=== PATIENT | female | born 1970 | race Two or more races ===

== ENCOUNTER 2017-07-14 16:37 | Inpatient (IN) | payer BC ==
[~2017-07-14] VITALS: Ht 160 cm; Wt 67.6 kg
[2017-07-14] VITALS (25 sets, daily range): BP systolic 105–199; BP diastolic 57–100
--- NOTE | 2017-07-14 16:40 | NUR ---
[id number], [id number] FROM [facility] FOR S/P SEIZURE WHILE IN [facility], BS-177, PT IS UNRESPONSIVE. RR IS EVEN AND UNLABORED WITH NAD NOTED. SKIN IS WARM AND NON DIAPHORETIC. NASAL TRUMPET NOTED HR ADMINISTRATIVE ASSISTANT. DR CASTILLO AT BS FOR EVAL. PATIENT PLACED ON THE MONITOR.
[2017-07-14] MEDS ORDERED: IOHEXOL-350 100 ML VIAL IV ONE (16:46)
[2017-07-14] MEDS ORDERED: IV NS 0.9% 250 ML IV ONE (16:46)
--- NOTE | 2017-07-14 16:53 | NUR ---
DR MORRISON FROM TELESTROKE CALLED ,ON THE PHONE WITH DR CASTILLO.
[2017-07-14] MEDS ORDERED: LEVETIRACETAM (500MG) 500 MG in IV NS 0.9% 100 ML IV SCH (17:00)
[2017-07-14] MEDS ORDERED: IV NS 0.9% 1,000 ML BAG IV ONE (17:00)
[2017-07-14 17:13] LABS: CALCIUM, SERUM 8.1 mg/dL (8.5-10.1); CARBON DIOXIDE 25 mmol/L (21-32); CHLORIDE 100 mmol/L (98-107); CREATININE 0.8 mg/dL (0.6-1.3); GLUCOSE 122 mg/dL (74-106); POTASSIUM 3.7 mmol/L (3.5-5.1); SODIUM SERUM 134 mmol/L (136-145); UREA NITROGEN, BLOOD 15 mg/dL (7-18)
[2017-07-14 17:17] LABS: INR 1.02 (0.87-1.13); PROTHROMBIN TIME 10.6 SECS (9.5-12.7)
[2017-07-14 17:18] LABS: ALANINE AMINOTRANSFERASE 15 U/L (12-78); ALBUMIN 3.3 g/dL (3.4-5.0); ALKALINE PHOSPHATASE 59 U/L (46-116); ASPARTATE AMINOTRANSFERASE 16 U/L (15-37); BILIRUBIN,TOTAL 0.1 mg/dL (0.2-1.0); TOTAL PROTEIN, SERUM 6.4 g/dL (6.4-8.2)
[2017-07-14 17:21] LABS: TROPONIN I < 0.017 ng/mL (0.00-0.056)
[2017-07-14 17:30] LABS: BASOPHILS # (AUTO) 0.1 /CMM (0.0-0.2); BASOPHILS % (AUTO) 0.5 % (0.0-2.0); EOSINOPHILS # (AUTO) 0.2 /CMM (0.0-0.7); EOSINOPHILS % (AUTO) 2.6 % (0.0-6.0); HEMATOCRIT 32 % (33-45); LYMPHOCYTES # (AUTO) 2.3 /CMM (0.8-4.8); LYMPHOCYTES % (AUTO) 24.3 % (20.0-44.0); MEAN CORPUSCULAR HEMOGLOBIN 26 PG (26.0-33.0); MEAN CORPUSCULAR HGB CONC 31 g/dl (31.0-36.0); MEAN CORPUSCULAR VOLUME 84 fL (82-100); MONOCYTES # (AUTO) 0.6 /CMM (0.1-1.30); MONOCYTES % (AUTO) 6.8 % (2.0-12.0); NEUTROPHILS # (AUTO) 6.2 /CMM (1.8-8.9); NEUTROPHILS % (AUTO) 65.8 % (43.0-81.0); PLATELET COUNT (AUTO) 349 /CMM (150-450); RDW COEFFICIENT OF VARIATION 14.4 (11.5-15.0); RED BLOOD CELL COUNT(AUTO) 3.78 MIL/uL (4.0-5.2); WHITE BLOOD COUNT (AUTO) 9.4 K/uL (4.3-11.0)
--- NOTE | 2017-07-14 18:13 | NUR ---
REPORT GIVEN TO MISAEL WORKMAN FOR [facility] ICU 254
[2017-07-14] MEDS ORDERED: ACETAMINOPHEN 650 MG/SUPP.RECT RC PRN (18:30)
[2017-07-14] MEDS ORDERED: LORAZEPAM INJ 2 MG/ML VIAL IV PRN (18:30)
[2017-07-14] MEDS ORDERED: ONDANSETRON HCL/PF 4 MG/2 ML VIAL IVP PRN (18:30)
--- NOTE | 2017-07-14 18:35 | NUR ---
ICU/RN PT ADMITTED FROM ER .UNRESPONSIVE .ON 6L SIMPLE MASK ,SAT O2-99%.PT HAS A LOT OF ORAL SECRETION. SUCTION PROVIDED.IV -HL.UNABLE PROVIDE ANY HISTORY.SKIN INTACT.
--- NOTE | 2017-07-14 18:50 | NUR ---
ICU/RUGBY LEAGUE FOOTBALLER AT BEDSIDE.PT HAS NO HX OF ANY DISEASE.HEALTHY ,GOING TO THE GYM DAILY.SHE WAS FOUND IN THE [place] IN THE GYM HAD SEIZURES. CT OF THE HEAD NEGATIVE.PT IS FULL CODE.PT NEED TO BE INTUBATED.ER DOCTOR NOTIFIED.ABG ORDERED.CONTINUE MONITORING.
--- NOTE | 2017-07-14 19:15 | NUR ---
RN:ICU: PT RECEIVED IN BED, RECENTLY ADMITTED FROM ER FOR ACUTE ENCEPHALOPATHY SECONDARY TO NEW ONSET SZ. PT BARELY RESPONSIVE TO DEEP PAINFUL STIMULI. PT NOTED WITH SHALLOW BREATHING, GURGLING AND WITH HER TONGUE PARTIALLY OCCLUDING HER AIRWAY. SPOKE WITH BRONWYN ASSESSMENT COORDINATOR REGARDING PT CONDITION AND CONCERNS WITH PATIENT BEING ABLE TO PROTECT AIRWAY. ASSESSMENT COORDINATOR ORDERED TO HAVE ER MD TO INTUBATE PT AND PRESCRIBED PRN HYDRALAZINE FOR ELEVATED SBP. ER MD CALLED TO THE BEDSIDE TO ASSESS PT AND INTUBATE. BASED OF THE ER MD'S ASSESSMENT SHE FELT LIKE THE PATIENT WAS WAKING UP AND DID NOT NEED TO BE INTUBATED. STAT ABG ORDERED TO DETERMINE IF THE PATIENT WAS VENTILATING ADEQUATELY. PER ER MD PERFORM ABG AND CALL HER WITH THE RESULTS IF THERE WERE ANY ABNORMALITIES. RT AT BEDSIDE PERFORMING ABG. WILL CONTINUE TO MONITOR CLOSELY. PT FAMILY UPDATED REGARDING POC.
[2017-07-14 19:26] LABS: ABG BASE EXCESS -6.8 mmol/L; ABG OXYGEN SATURATION 98.7 % (92.0-98.5); ABG PCO2 106.3 mmHg (35.0-45.0); ABG PH 7.014 (7.350-7.450); ABG PO2 246.8 mmHg (75.0-100.0); COHb 0.3 % (0.5-1.5); MetHb 0.9 % (0.0-1.5); O2Hb 97.5 % (94.0-97.0); SITE, ABG Right Radial
[2017-07-14] MEDS ORDERED: hydrALAZINE HCL IV 20 MG VIAL IV PRN (19:30)
--- NOTE | 2017-07-14 19:45 | NUR ---
RN:ICU: ABG RESULTS CALLED TO ER MD PCO2 WAS >100. MD WILL INTUBATE PT.
[2017-07-14] MEDS: IV NS 0.9% 1,000 ML IV PRN (19:53)
[2017-07-14] MEDS: PROPOFOL 100 ML IV PRN ×2 (20:36→22:12)
--- NOTE | 2017-07-14 20:51 | NUR ---
@[address] PT ORALLY INTUBATED BY DR. SILVER. 7.5 ETT SECURED AT 22CM AT THE LIP. GOOD COLOR CHANGE ON CO2 DETECTOR. BREATH SOUND GOOD, EQUAL CHEST RISE. PT PLACED ON 840 VENT. PLACED ANCHOR FAST. ETT TUBE IS ON RIGHT SIDE OF THE LIP. SX'D FOR WHITE SECRETIONS. VENT ALARMS SET AND AUDIBLE. AMBU BAG AT BEDSIDE. VENT PLUGGED INTO RED OUTLET. WILL CONTINUE TO MONITOR.
[2017-07-14] MEDS ORDERED: ENOXAPARIN SODIUM 40 MG/0.4 ML DISP.SYRIN SQ SCH (21:00)
[2017-07-14] MEDS: FAMOTIDINE/PF INJ 20 MG/2 ML VIAL IV SCH (21:22)
[2017-07-14 21:23] LABS: ABG BASE EXCESS -3.1 mmol/L; ABG OXYGEN SATURATION 99.1 % (92.0-98.5); ABG PCO2 31.7 mmHg (35.0-45.0); ABG PH 7.428 (7.350-7.450); ABG PO2 251.5 mmHg (75.0-100.0); AaDO2 69.3 mmHg; COHb 0.5 % (0.5-1.5); MetHb 0.3 % (0.0-1.5); O2Hb 98.3 % (94.0-97.0); SITE, ABG Right Radial
--- NOTE | 2017-07-14 21:28 | NUR ---
ABG DONE. RN NOTIFIED WITH RESULT.
--- NOTE | 2017-07-14 21:44 | NUR ---
RATE CHANGED TO 16, TIDAL VOLUME TO 450, FIO2 40% PER DR. PERRY.
--- NOTE | 2017-07-14 21:53 | NUR ---
RN:ICU: ABG 1 HOUR POST INTUBATED REPORTED TO MD SHOVEL OPERATOR. NEW ORDERS TO MAKE VENT CHANGES. ORDERS RECEIVED TO INCREASE DIPRIVAN TO GREATER THAN 50MCG/KG/MIN PT CONTINUES CONTINUES TO COUGH AND IS AT HIGH RISK FOR SELF EXTUBATION SHE COUGHS VIOLENTLY AND IS BITING TUBE. ALSO BSWR ORDERED FOR PT SAFETY SHE MAY SELF EXTUBATE, DESPITE REORIENTATION. FAMILY AT THE BEDSIDE AND AWARE OF POC. WILL CONTINUE TO MONITOR CLOSELY.
[2017-07-15] VITALS (46 sets, daily range): BP systolic 94–172; BP diastolic 45–95
[2017-07-15 00:32] LABS: APPEARANCE,URINE CLEAR (CLEAR); BILIRUBIN,URINE NEGATIVE (NEGATIVE); BLOOD, URINE TRACE Ery/uL (NEGATIVE); COLOR,URINE YELLOW (YELLOW); KETONES,URINE TRACE (NEGATIVE); LEUKOCYTE ESTERASE ,URINE NEGATIVE (NEGATIVE); NITRITE, URINE NEGATIVE (NEGATIVE); PH,URINE 6.5 (5.0-8.0); PROTEIN,URINE TRACE mg/dl (NEGATIVE); UGLUCOSE NEGATIVE (NEGATIVE); UROBILINOGEN,URINE 0.2 EU/dL (0.2)
[2017-07-15 00:37] LABS: BACTERIA,URINE None seen /HPF (None Seen); RBC,URINE 0-2 /HPF (0-2); SQUAMOUS EPITHELIAL CELL,UR Few /HPF (None Seen); WBC,URINE 0-2 /HPF (0-3)
[2017-07-15] MEDS: PROPOFOL 100 ML IV PRN ×4 (00:55→08:23)
--- NOTE | 2017-07-15 03:25 | NUR ---
RN:ICU: PT CONTINUES TO BECOME EASILY AGITATED, COUGHING VIOLENTLY AND IS AT RISK FOR SELF EXTUBATION, DESPITE BEING ON 90MCG/KG/MIN. SEDATION INCREASED FOR PT COMFORT AND SAFETY, WITH BSWR IN PLACE. PT HAS HIGH TOLERANCE TO SEDATION MEDICATION. IV SITE WHERE DIPRIVAN IS INFUSING REMAINS PATENT. PT URINE TOXICOLOGY SCREEN POSITIVE FOR AMPHETAMINES, WILL ENDORSE TO ONCOMING SHIFT.
[2017-07-15] MEDS: IV NS 0.9% 1,000 ML IV PRN ×2 (03:57→17:17)
[2017-07-15 04:37] LABS: BASOPHILS % (AUTO) 0.2 % (0.0-2.0); EOSINOPHILS % (AUTO) 0.3 % (0.0-6.0); HEMATOCRIT 31 % (33-45); LYMPHOCYTES # (AUTO) 1.3 /CMM (0.8-4.8); LYMPHOCYTES % (AUTO) 13.2 % (20.0-44.0); MEAN CORPUSCULAR HEMOGLOBIN 27 PG (26.0-33.0); MEAN CORPUSCULAR HGB CONC 32 g/dl (31.0-36.0); MEAN CORPUSCULAR VOLUME 83 fL (82-100); MONOCYTES # (AUTO) 0.9 /CMM (0.1-1.30); MONOCYTES % (AUTO) 8.7 % (2.0-12.0); NEUTROPHILS # (AUTO) 7.8 /CMM (1.8-8.9); NEUTROPHILS % (AUTO) 77.6 % (43.0-81.0); PLATELET COUNT (AUTO) 305 /CMM (150-450); RDW COEFFICIENT OF VARIATION 14.4 (11.5-15.0); RED BLOOD CELL COUNT(AUTO) 3.77 MIL/uL (4.0-5.2); WHITE BLOOD COUNT (AUTO) 10.1 K/uL (4.3-11.0)
[2017-07-15 04:56] LABS: CREATININE 0.5 mg/dL (0.6-1.3); MAGNESIUM 1.9 mg/dL (1.8-2.4); PHOSPHORUS 3.6 mg/dL (2.5-4.9); POTASSIUM 3.3 mmol/L (3.5-5.1)
[2017-07-15 05:05] LABS: THYROID STIMULATING HORMONE 0.536 uIU/mL (0.358-3.74)
[2017-07-15] MEDS: FAMOTIDINE/PF INJ 20 MG/2 ML VIAL IV SCH ×2 (08:41→20:27)
[2017-07-15] MEDS ORDERED: ETOMIDATE 2 MG/ML VIAL ONE (08:41)
[2017-07-15] MEDS ORDERED: SUCCINYLCHOLINE CHLORIDE 20 MG/ML VIAL ONE (08:41)
[2017-07-15] MEDS: ENOXAPARIN SODIUM 40 MG/0.4 ML DISP.SYRIN SQ SCH (08:42)
[2017-07-15] MEDS: LEVETIRACETAM (500MG) 500 MG in IV NS 0.9% 100 ML IV SCH ×2 (08:45→20:27)
[2017-07-15] MEDS ORDERED: FAMOTIDINE/PF INJ 20 MG/2 ML VIAL IV SCH (09:00)
--- NOTE | 2017-07-15 09:57 | NUR ---
TITRATING DOWN DIPRIVAN (FROM 100MCG) FOR SEDATION VACATION. PT IS ALREADY RESTLESS MOVING ARM AND LEGS, BUT DOESN'T FOLLOW SIMPLE COMMANDS YET TO OPEN EYES OR SQUEEZE HANDS. WILL CONTINUE TO TITRATE DOWN AND ASSESS. RESTRAINTS IN PLACE. PT'S BROTHER IS AT BEDSIDE, I ORIENTED HIM TO THE PLAN OF CARE AND TO REMAIN CALM AND TO ORIENT HER ABOUT THE SITUATION SHE CONTINUES TO WAKE UP.
[2017-07-15] MEDS: POTASSIUM CL. PREMIX PERIPHER. 50 ML IV SCH ×2 (10:31→11:31)
--- NOTE | 2017-07-15 10:55 | NUR ---
DR. POLO NOTIFIED ABOUT POTASSIUM REPLACEMENT HE SAYS ITS OKAY TO REPLACE THROUGH NGTUBE INSTEAD OF IV BECAUSE WE ONLY HAVE PERIPH IV'S.
--- NOTE | 2017-07-15 11:05 | NUR ---
DR. POLK SHOWN THE NEWEST ABG OFF OF SEDATION, GIVES ORDERS TO EXTUBATE.
[2017-07-15 11:08] LABS: ABG OXYGEN SATURATION 98.4 % (92.0-98.5); ABG PCO2 40.9 mmHg (35.0-45.0); ABG PH 7.354 (7.350-7.450); ABG PO2 173.3 mmHg (75.0-100.0); AaDO2 64.9 mmHg; COHb 0.3 % (0.5-1.5); MetHb 0.9 % (0.0-1.5); O2Hb 97.2 % (94.0-97.0); PEEP,BG 5 cm H2O; SITE, ABG Right Radial; VENT MODE, BG SIMV 4 PS 12 +5
[2017-07-15] MEDS ORDERED: DC PROPOFOL WHEN EXTUBATED XX PRN (11:20)
[2017-07-15] MEDS ORDERED: POTASSIUM CHLORIDE 20 MEQ POWDER PACKET GT ONE (11:30)
[2017-07-15] MEDS: ACETAMINOPHEN 325 MG TABLET PO PRN ×2 (12:40→20:27)
[2017-07-15 13:23] LABS: ABG BASE EXCESS -2.7 mmol/L; ABG OXYGEN SATURATION 98.6 % (92.0-98.5); ABG PCO2 43.6 mmHg (35.0-45.0); AaDO2 29.1 mmHg; COHb 0.1 % (0.5-1.5); MetHb 0.7 % (0.0-1.5); O2Hb 97.8 % (94.0-97.0); SITE, ABG Left Radial; VENT MODE, BG N/C
--- NOTE | 2017-07-15 16:29 | NUR ---
Patient lives at home with family. Prior to admission, she was physically active, works at [employer]. Patient was extubated, tolerating O2 nasal . Plan to dc back home, has good family support. Addendum: 07/15/17 at 1629 by ERI PORTILLO RN Amended: Links added.
--- NOTE | 2017-07-15 16:44 | NUR ---
PT C/O OF MIGRAINE HEADACHE, GAVE TYLENOL EARLIER WITH NO RELIEF. NOTIFIED DR. POLO WHO OKAYS TO ORDER EXCEDRIN 1 TAB Q6HR PRN MIGRAINE.
[2017-07-15] MEDS: ASPIRIN/ACETAMINOPHEN/CAFFEINE 1 EACH TABLET PO PRN (17:26)
--- NOTE | 2017-07-15 19:53 | NUR ---
RN:ICU: PT RECEIVED IN BED CONFUSED BUT ABLE TO FOLLOW COMMANDS. PT CONTINUES TO ASK HOW SHE GOT TO THE HOSPITAL. PT REORIENTED SEVERAL TIMES BUT PT REMAINS CONFUSED. PT DENIES PAIN OR RESPIRATORY DISTRESS. ASPIRATION AND FALL PRECAUTIONS IN PLACE. WILL CONTINUE TO MONITOR CLOSELY.
[2017-07-16] VITALS (23 sets, daily range): BP systolic 116–159; BP diastolic 63–94
[2017-07-16] MEDS: IV NS 0.9% 1,000 ML IV PRN ×3 (01:06→19:56)
[2017-07-16 04:41] LABS: BASOPHILS % (AUTO) 0.4 % (0.0-2.0); EOSINOPHILS % (AUTO) 0.5 % (0.0-6.0); HEMATOCRIT 30 % (33-45); HEMOGLOBIN 9.8 g/dL (11.5-14.8); LYMPHOCYTES # (AUTO) 1.2 /CMM (0.8-4.8); MEAN CORPUSCULAR HEMOGLOBIN 27 PG (26.0-33.0); MEAN CORPUSCULAR HGB CONC 33 g/dl (31.0-36.0); MEAN CORPUSCULAR VOLUME 83 fL (82-100); MONOCYTES # (AUTO) 0.7 /CMM (0.1-1.30); MONOCYTES % (AUTO) 7.6 % (2.0-12.0); NEUTROPHILS # (AUTO) 6.8 /CMM (1.8-8.9); NEUTROPHILS % (AUTO) 77.5 % (43.0-81.0); PLATELET COUNT (AUTO) 289 /CMM (150-450); RDW COEFFICIENT OF VARIATION 14.6 (11.5-15.0); RED BLOOD CELL COUNT(AUTO) 3.61 MIL/uL (4.0-5.2); WHITE BLOOD COUNT (AUTO) 8.8 K/uL (4.3-11.0)
[2017-07-16 04:55] LABS: CALCIUM, SERUM 8.4 mg/dL (8.5-10.1); CREATININE 0.5 mg/dL (0.6-1.3); POTASSIUM 3.1 mmol/L (3.5-5.1)
--- NOTE | 2017-07-16 07:36 | NUR ---
ICU NOTE PT MORE ALERT TODAY. INTERMEDIATE MEMORY INTACT, BUT SHE DOESN'T RECALL THE EVENTS THAT BROUGHT HER TO THE HOSPITAL. SHE REMEMBERS BITS AND PARTS FROM YESTERDAY AFTER EXTUBATION HOWEVER SHE SAYS ITS FOGGY, SHE FEELS LIKE SHE WOKE UP FROM A DEEP SLEEP AND SOME OF THE HOSPITAL STAFF SUCH MYSELF LOOK FAMILIAR. I ORIENTED HER TO HER CURRENT SITUATION.
[2017-07-16] MEDS: FAMOTIDINE/PF INJ 20 MG/2 ML VIAL IV SCH ×2 (08:33→21:57)
[2017-07-16] MEDS: ASPIRIN/ACETAMINOPHEN/CAFFEINE 1 EACH TABLET PO PRN (08:33)
[2017-07-16] MEDS: ENOXAPARIN SODIUM 40 MG/0.4 ML DISP.SYRIN SQ SCH (08:38)
[2017-07-16] MEDS: LEVETIRACETAM (500MG) 500 MG in IV NS 0.9% 100 ML IV SCH (08:39)
--- NOTE | 2017-07-16 10:12 | NUR ---
DR. POLK AND DR. POLO ALREADY IN FOR EVAL BOTH OKAY PT FOR DOWNGRADE TO MED/SURG.
[2017-07-16] MEDS ORDERED: POTASSIUM CHLORIDE 20 MEQ TAB.PRT.SR PO ONE (10:30)
--- NOTE | 2017-07-16 19:30 | NUR ---
SLAG DUMPER INITIAL NOTE PT RECEIVED IN BED RESTING COMFORTABLY. A/O X3 AND ABLE TO VERBALIZE NEEDS. ON ROOM AIR AND SATURATING WELL. BREATHING EVEN, REGULAR AND UNLABORED. TELE- SR. IV RFA/LFA CLEAN AND DRY WITH FLUIDS INFUSING. NO C/O PAIN AT THIS TIME. NO SOB NOTED. HOB ELEVATED. FAMILY AT BEDSIDE. CALL LIGHT WITHIN REACH. WILL CONTINUE TO MONITOR.
[2017-07-16] MEDS: LEVETIRACETAM (250 MG) 250 MG TABLET PO SCH (21:57)
[2017-07-17] VITALS (14 sets, daily range): BP systolic 122–158; BP diastolic 67–92
[2017-07-17 04:59] LABS: BASOPHILS % (AUTO) 0.5 % (0.0-2.0); EOSINOPHILS # (AUTO) 0.1 /CMM (0.0-0.7); EOSINOPHILS % (AUTO) 1.9 % (0.0-6.0); HEMATOCRIT 29 % (33-45); HEMOGLOBIN 9.5 g/dL (11.5-14.8); LYMPHOCYTES # (AUTO) 1.5 /CMM (0.8-4.8); LYMPHOCYTES % (AUTO) 20.4 % (20.0-44.0); MEAN CORPUSCULAR HEMOGLOBIN 27 PG (26.0-33.0); MEAN CORPUSCULAR HGB CONC 33 g/dl (31.0-36.0); MEAN CORPUSCULAR VOLUME 84 fL (82-100); MONOCYTES # (AUTO) 0.7 /CMM (0.1-1.30); NEUTROPHILS # (AUTO) 4.8 /CMM (1.8-8.9); NEUTROPHILS % (AUTO) 67.2 % (43.0-81.0); PLATELET COUNT (AUTO) 266 /CMM (150-450); RDW COEFFICIENT OF VARIATION 14.5 (11.5-15.0); RED BLOOD CELL COUNT(AUTO) 3.49 MIL/uL (4.0-5.2); WHITE BLOOD COUNT (AUTO) 7.1 K/uL (4.3-11.0)
[2017-07-17 05:20] LABS: CREATININE 0.4 mg/dL (0.6-1.3); POTASSIUM 3.2 mmol/L (3.5-5.1)
[2017-07-17] MEDS: IV NS 0.9% 1,000 ML IV PRN ×2 (06:05→10:52)
--- NOTE | 2017-07-17 07:23 | NUR ---
MEN'S LEATHER DRESS BELT MAKER CLOSING NOTE PT REMAINED STABLE DURING SHIFT. NO ACUTE DISTRESS NOTED. ALL NEEDS ATTENDED TO PROMPTLY. MARIE CATHETER REMOVED DURING BED BATH AT 530AM. INFORMED PT TO NOTIFY NURSE WHEN NEED TO URINATE. PT TEACHING TO URINATE WITHIN 8HRS AND ITS IMPORTANCE. NO SEIZURE ACTIVITY DURING SHIFT. ALL SAFETY MEASURES IN PLACE. WILL ENDORSE TO NEXT SHIFT FOR CONTINUITY OF CARE.
--- NOTE | 2017-07-17 07:25 | NUR ---
PREDATORY GAME HUNTER- INITIAL NOTE RECEIVED PT A/O X3. ON ROOM AIR, RESPIRATIONS EVEN AND UNLABORED, NO SOB OR DISTRESS PRESENT. BEDSIDE MONITOR REVEALS SINUS RHYTHM. RFA 20G RUNNING NS @ 100 ML/HR AND LFA 18G HL FLUSHED, PATENT AND INTACT. BOTH IV SITES FREE OF REDNESS, SWELLING AND INFLAMMATION. PT CONTINENT OF URINE & STOOL, ASSISTED PT TO BEDSIDE COMMODE. SAFETY MEASURES TAKEN: LOCKED AND IN LOW POSITION, SIDE RAILS UP X2, BED ALARM ON AND CALL LIGHT WITHIN REACH, WILL CONTINUE TO MONITOR.
[2017-07-17] MEDS: LEVETIRACETAM (250 MG) 250 MG TABLET PO SCH (09:39)
[2017-07-17] MEDS: FAMOTIDINE/PF INJ 20 MG/2 ML VIAL IV SCH (09:39)
[2017-07-17] MEDS: ENOXAPARIN SODIUM 40 MG/0.4 ML DISP.SYRIN SQ SCH (09:43)
--- NOTE | 2017-07-17 10:15 | NUR ---
AUTOMOTIVE FINANCE MANAGER- PT TRANSFERRED TO CT ROOM 117-2 VIA WHEELCHAIR. BEDSIDE REPORT GIVEN BY SHREYA DOUGLAS TO RIANA DOUGLAS. ALL BELONGINGS SENT WITH PATIENT.
--- NOTE | 2017-07-17 10:44 | NUR ---
MS RN NOTE RECEIVED PATIENT FROM ICU ,ALERT , ORIENTED X3 ON MED SURGE UNIT, HOSPITAL ORIENTATION DONE , VS TAKEN , PLAN OF CARE DISCUSSED WITH PATIENT ,BED IN LOWEST ND LOCKED POSITION , NOT IN DISTRESS ,WILL CONT TO MONITOR CLOSELY, CALL LIGHT WITHIN REACH
[2017-07-17] MEDS ORDERED: FLU VACC QS 2017-18(36MOS+)/PF 0.5 ML DISP.SYRIN IM ONE (12:00)
--- NOTE | 2017-07-17 13:09 | NUR ---
MS RN NOTES PER DOCTOR MELANI , PT IS OKAY TO DISCHARGE HOME. DC INSTRUCTIONS GIVEN UNDERSTOOD. HEPLOCK REMOVE BOTH ARMS. NO SIGNS OF INFECTION, PAIN , REDNESS NOTED. PRESCRIPTION GIVEN , EXPLAINED HOW TO TAKE MEDICATIONS AND POSSIBLE SIDE EFFECTS. INSTRUCTED PATIENT AND FAMILY TO FOLLOW UP WITH THE PRIMARY CARE DOCTOR NEXT WEEK AND FOR ANY CONCERNS. BELONGINGS SIGNED, SPOKE WITH SUGAR CANE PLANTER MACHINE OPERATOR WITH EXCUSE LETTER FROM WORK , DR POLO NOTIFIED.
--- NOTE | 2017-07-17 13:31 | NUR ---
YESI received a call from Dr. Lewis requesting for SW to give pt. a verification of admission letter. YESI completed verification of admission letter stating pt. was at [facility] from 07/14 till 07/17 for an acute condition and gave it to pt. bedside.
--- NOTE | 2017-07-17 13:45 | NUR ---
MS RN NOTES PT DISCHARGE TO HOME , WENT TO THE LOBBY WITH SON , EX VIA WHEELCHAIR ACCOMPANIED BY THE HOSPITALITY WORKERS. PT IS STABLE WERE STABLE.
== END 2017-07-17 13:30 | disposition home or self-care (01) | DRG 917 ==
LOC: ER 16:40 → ICU 18:24 → MEDSG1 07-17 10:43
PROVIDERS: ADMIT Nurse Practitioner Acute Care; ATTEND Nurse Practitioner Acute Care
PROC: 5A1935Z Respiratory Ventilation, Less than 24 Consecutive Hours (ICD-10-PCS; principal; 2017-07-14)
PROC: 0BH17EZ Insertion of Endotracheal Airway into Trachea, Via Natural or Artificial Opening (ICD-10-PCS; principal; 2017-07-14)
DX: T43.621A Poisoning by amphetamines, accidental (unintentional), initial encounter (principal); G92 Toxic encephalopathy; J96.01 Acute respiratory failure with hypoxia; J96.02 Acute respiratory failure with hypercapnia; E87.1 Hypo-osmolality and hyponatremia; G40.909 Epilepsy, unspecified, not intractable, without status epilepticus; Y92.009 Unspecified place in unspecified non-institutional (private) residence as the place of occurrence of the external cause; D64.9 Anemia, unspecified; E87.6 Hypokalemia
CPT/HCPCS: 31720; 36415; 36600; 70450-TC; 70496-TC; 70498-TC; 71010-TC; 80048-TC; 80076-TC; 80305; 81000-TC; 82803-TC; 82962-TC; 83735-TC; 84100-TC; 84443-TC; 84484-TC; 84703-TC; 85025-TC; 85730-TC; 87070-TC; 87081-TC; 94002-TC; 94003-TC; 94640-TC; 94762-TC; 94799-TC; 95819-TC; A4606; J0330; J0360; J1650; J1953; J2060; J3480; J3490; J7030; J7050; Q2036; Q9967; Z7610

== ENCOUNTER 2018-11-19 15:34 | Inpatient (IN) | payer BC, OTHER ==
[~2018-11-19] VITALS: Ht 165.1 cm; Wt 66.7 kg
[2018-11-19] MEDS ORDERED: LORAZEPAM INJ 2 MG/ML VIAL ONE (15:39)
--- NOTE | 2018-11-19 15:40 | NUR ---
Full tonic-clonic seizure on arrival MD notified with orders for Ativan. Airway protected- HFNRM applied. Seizure pads in place
[2018-11-19 15:55] LABS: BASOPHILS # (AUTO) 0.1 /CMM (0.0-0.2); BASOPHILS % (AUTO) 0.9 % (0.0-2.0); EOSINOPHILS % (AUTO) 2.8 % (0.0-6.0); HEMATOCRIT 30 % (33-45); HEMOGLOBIN 9.8 g/dL (11.5-14.8); LYMPHOCYTES # (AUTO) 2.3 /CMM (0.8-4.8); LYMPHOCYTES % (AUTO) 28.9 % (20.0-44.0); MEAN CORPUSCULAR HGB CONC 33 g/dl (31.0-36.0); MEAN CORPUSCULAR VOLUME 80 fL (82-100); MONOCYTES # (AUTO) 0.7 /CMM (0.1-1.30); MONOCYTES % (AUTO) 8.4 % (2.0-12.0); NEUTROPHILS # (AUTO) 4.7 /CMM (1.8-8.9); PLATELET COUNT (AUTO) 347 /CMM (150-450); RED BLOOD CELL COUNT(AUTO) 3.76 MIL/uL (4.0-5.2)
--- NOTE | 2018-11-19 15:55 | NUR ---
BIB Boyfriend from Home "was standing on kitchen counter had a blank stare and she started shaking (seizure-like). Has had this before". Placed on the monitor and hospital gown. Skin is warm and dry. Awaiting md for eval.
[2018-11-19 16:00] VITALS: BP 139/77
[2018-11-19] MEDS ORDERED: LORAZEPAM INJ 2 MG/ML VIAL IV ONE (16:00)
[2018-11-19] MEDS ORDERED: IV NS 0.9% 1,000 ML BAG IV ONE (16:00)
[2018-11-19] MEDS ORDERED: LEVETIRACETAM (500MG) 1,000 MG in IV NS 0.9% 100 ML IV ONE (16:00)
[2018-11-19 16:05] LABS: CALCIUM, SERUM 7.9 mg/dL (8.5-10.1); CARBON DIOXIDE 25 mmol/L (21-32); CHLORIDE 106 mmol/L (98-107); CREATININE 0.7 mg/dL (0.6-1.3); GLUCOSE 97 mg/dL (74-106); POTASSIUM 3.4 mmol/L (3.5-5.1); SODIUM SERUM 138 mmol/L (136-145); UREA NITROGEN, BLOOD 16 mg/dL (7-18)
[2018-11-19 16:11] LABS: ALANINE AMINOTRANSFERASE 15 U/L (12-78); ALBUMIN 3.3 g/dL (3.4-5.0); ALKALINE PHOSPHATASE 60 U/L (46-116); ASPARTATE AMINOTRANSFERASE 14 U/L (15-37); BILIRUBIN,TOTAL 0.1 mg/dL (0.2-1.0); LIPASE 117 U/L (73-393); TOTAL PROTEIN, SERUM 6.7 g/dL (6.4-8.2)
--- NOTE | 2018-11-19 16:17 | NUR ---
CALLED WILLY GIBBONS FOR BED; STATED THAT HE IS WAITING FOR DISCHARGES FROM UP STAIRS TO HAPPEN, THEN HE WILL GIVE BEDS.
[2018-11-19 16:19] LABS: APPEARANCE,URINE Cloudy (CLEAR); BILIRUBIN,URINE Negative (NEGATIVE); BLOOD, URINE Trace-intact Ery/uL (NEGATIVE); COLOR,URINE Yellow (YELLOW); KETONES,URINE Negative (NEGATIVE); LEUKOCYTE ESTERASE ,URINE Negative (NEGATIVE); NITRITE, URINE Negative (NEGATIVE); PROTEIN,URINE 100 mg/dl (NEGATIVE); UGLUCOSE Negative (NEGATIVE); UROBILINOGEN,URINE 0.2 EU/dL (0.2)
[2018-11-19 16:31] LABS: BACTERIA,URINE Few /HPF (None Seen); RBC,URINE 0-2 /HPF (0-2); SQUAMOUS EPITHELIAL CELL,UR Few /HPF (None Seen); WBC,URINE 0-2 /HPF (0-3)
[2018-11-19 16:32] LABS: URINE AMORPHOUS URATE Many /HPF (None Seen)
--- NOTE | 2018-11-19 16:45 | NUR ---
Neurologist here Family updated by same await admission
--- NOTE | 2018-11-19 17:12 | NUR ---
PT IS GOING TO 308-1 TELE
--- NOTE | 2018-11-19 17:18 | NUR ---
Nurse Knowledge Exchange given to RN Blossom. NO seizure activity noted since. Asleep.
--- NOTE | 2018-11-19 17:40 | NUR ---
SENIOR JAVA ENGINEER PATIENT RECEIVED FROM E.R. DEPT, WITH IVF INFUSING. SON AND BOYFRIEND AT BEDSIDE. PATIENT TRANSFERRED TO A TELE BED, TELE MONITOR IN PLACED, AND PATIENT SHOWS SR 79. PATIENT SLEEPING, ONLY ABLE TO OPEN EYES FOR A FEW SECONDS, THEN WILL GO BACK TO SLEEP. RESPONSIVE TO VERBAL AND TACTILE STIMULI. PATIENT IS CURRENTLY ON O2 AT 2LPM VIA NC TO KEEP SPO2 > 92%. NO SOB NOTED AT THIS TIME. PATIENT IS MOVING RESTLESSLY IN BED AT TIMES. SEIZURE PRECAUTION OBSERVED. SIDERAILS PADDED. SKIN ASSESSMENT COMPLETED, SKIN DRY AND INTACT. BED ALARM ON, CALL LIGHT WITHIN REACH, WILL ENDORSE TO CAFE LEAD FOR CISCO.
[2018-11-19] MEDS ORDERED: LEVE500T20 PO (17:49)
--- NOTE | 2018-11-19 19:30 | NUR ---
RN NOTES RECEIVED PT. SLEEPING , RESPONSIVE TO TACTILE STIMULI BUT EYES ARE CLOSE, SR ON TELE MONITOR HR-77, FAMILY AT BEDSIDE, SIDERAILS ARE ALL PADDED, SIDERAILSUPX2, CONTINUE TO MONITOR
[2018-11-19 20:05] VITALS: BP 138/84
[2018-11-19] MEDS ORDERED: Z GUARD REMEDY 2 OZ OINT TP PRN (21:30)
[2018-11-19] MEDS ORDERED: ONDANSETRON HCL/PF 4 MG/2 ML VIAL IVP PRN (21:30)
[2018-11-19] MEDS ORDERED: HYDROCODONE/APAP 5/325MG 1 EACH TABLET PO PRN (21:30)
[2018-11-19] MEDS ORDERED: LORAZEPAM INJ 2 MG/ML VIAL IV PRN (21:30)
[2018-11-19] MEDS ORDERED: MAG HYDROX/AL HYDROX/SIMETH 30 ML UDC PO PRN (21:30)
[2018-11-19] MEDS ORDERED: ZOLPIDEM TARTRATE 5 MG TABLET PO PRN (21:30)
[2018-11-19] MEDS ORDERED: POTASSIUM CHLORIDE 20 MEQ TAB.PRT.SR PO ONE (21:30)
--- NOTE | 2018-11-19 23:31 | NUR ---
Patient is alert,lives locally with spouse/significant other. Prior to hospitalization she was ambulatory and independent with adl's. Has no DME or homehealth reported. She plan to return home once d/c, spouse will provide ride. Addendum: 11/19/18 at 2332 by ERI PORTILLO RN Amended: Links added.
[2018-11-20] VITALS (7 sets, daily range): BP systolic 120–141; BP diastolic 75–84
[2018-11-20] MEDS: ACETAMINOPHEN 325 MG TABLET PO PRN ×2 (02:41→08:36)
--- NOTE | 2018-11-20 02:52 | NUR ---
RN NOTES COMPLAINED OF HEADACHE, TYLENOL 650MG PO GIVEN ORDERED, V/S STABLE
[2018-11-20 06:19] LABS: BASOPHILS # (AUTO) 0.1 /CMM (0.0-0.2); BASOPHILS % (AUTO) 0.7 % (0.0-2.0); EOSINOPHILS % (AUTO) 2.5 % (0.0-6.0); HEMATOCRIT 28 % (33-45); HEMOGLOBIN 9.1 g/dL (11.5-14.8); LYMPHOCYTES # (AUTO) 1.8 /CMM (0.8-4.8); LYMPHOCYTES % (AUTO) 24.1 % (20.0-44.0); MEAN CORPUSCULAR HGB CONC 33 g/dl (31.0-36.0); MEAN CORPUSCULAR VOLUME 80 fL (82-100); MONOCYTES # (AUTO) 0.7 /CMM (0.1-1.30); MONOCYTES % (AUTO) 9.2 % (2.0-12.0); NEUTROPHILS # (AUTO) 4.6 /CMM (1.8-8.9); NEUTROPHILS % (AUTO) 63.5 % (43.0-81.0); PLATELET COUNT (AUTO) 316 /CMM (150-450); RED BLOOD CELL COUNT(AUTO) 3.45 MIL/uL (4.0-5.2); WHITE BLOOD COUNT (AUTO) 7.3 K/uL (4.3-11.0)
--- NOTE | 2018-11-20 06:46 | NUR ---
RN NOTES AWAKE, DENIES PAIN, NO SOB, ,MORNING CARE RENDERED, CALL LIGHT WITHIN REACH, SIDERAILSUPX2, PT. NEEDS ATTENDED
[2018-11-20 06:52] LABS: CALCIUM, SERUM 7.9 mg/dL (8.5-10.1); CREATININE 0.6 mg/dL (0.6-1.3); PHOSPHORUS 2.7 mg/dL (2.5-4.9); POTASSIUM 3.6 mmol/L (3.5-5.1)
--- NOTE | 2018-11-20 07:53 | NUR ---
CONTRACT PARALEGAL OPENING NOTES PATIENT A/O X 3 AND ABLE TO MAKE NEEDS KNOWN, RESPONSIVE TO ALL STIMULI. RESPIRATION EVEN AND NON LABORED WITH NO ACUTE RESPIRATORY DISTRESS. ABDOMEN SOFT AND NON DISTENDED WITH ACTIVE BOWEL SOUNDS TO ALL QUADRANTS. SKIN WARM TO TOUCH, INTACT AND DRY. IV LINE AT LEFT AC GAUGE 20 WITH NO S/SX OF INFILTRATION. TELE MONITOR WITH SINUS BRADYCARDIA 59. ALL CONCERNS ATTENDED. PLACED CALL LIGHT WITHIN REACH FOR SAFETY. WILL CONTINUE TO EVALUATE CARE.
--- NOTE | 2018-11-20 08:15 | NUR ---
M/S RN NOTE PATIENT SEEN BY DR. HANSON WITH NEW ORDER FOR PSYCH CONSULT WITH DR. SESAY. ORDER VERIFIED, ORDER NOTED AND CARRIED OUT. GPS FLOOR NOTIFIED
[2018-11-20] MEDS: LEVETIRACETAM (250 MG) 250 MG TABLET PO SCH ×2 (08:36→21:25)
--- NOTE | 2018-11-20 09:29 | NUR ---
WOUND CARE CONSULT: PT PRESENTS WITH INTACT SKIN AND IS CONTINENT AT THIS TIME WELL INDEPENDENT WITH BED MOBILITY. WILL SEE PRN.
--- NOTE | 2018-11-20 16:05 | NUR ---
M/S RN NOTE PATIENT STATED THAT SHE HIT HER HEAD 2 WEEKS AGO AT WORK IN A METAL REQUESTING FOR CT SCAN, NO CHANGE OF LEVEL OF CONSCIOUSNESS AFTER THE INCIDENT HAS BEEN NOTED. PAGED DR. HANSON WITH NO RESPONSE NOTED AT THIS TIME, NEURO HAVEN'T CHRISTY PATIENT YET. WILL CONTINUE TO MONITOR.
--- NOTE | 2018-11-20 18:28 | NUR ---
M/S RN CLOSING NOTES PATIENT A/O X 4 AND ABLE TO MAKE NEEDS KNOWN, RESPONSIVE TO ALL STIMULI. RESPIRATORY EVEN AND NON LABORED WITH NO ACUTE RESPIRATORY DISTRESS, OXYGEN NOT NEEDED. ABDOMEN SOFT AND NON DISTENDED WITH ACTIVE BOWEL SOUNDS TO ALL QUADRANTS. PATIENT DENIES PAIN AND DISCOMFORT. SKIN WARM TO TOUCH, INTACT AND DRY. IV AT RIGHT ANTECUBITAL WITH GAUGE 18 PATENT IN FLUSHING, NO S/SX OF INFILTRATION. ALL CONCERNS ADDRESSED. PLACED CALL LIGHT WITHIN REACH TO ENSURE SAFETY. ENDORSED PATIENT CONDITION TO NEXT SHIFT.
--- NOTE | 2018-11-20 19:58 | NUR ---
RN NOTES RECEIVED PATIENT AWAKE ALERT IN BED, ALL SAFETY MEASURES IN PLACE, DENIES ANY PAIN AND DISCOMFORT AT THIS TIME, NO SIGNS OF ACUTED RESPIRATORY DISTRESS NOTED, IV ACCESS ON HER RIGHT AC G#18 INTACT AND PATENT. WILL MONITOR ACCORDINGLY.
--- NOTE | 2018-11-20 21:45 | NUR ---
RN NOTES PATIENT MOVED FROM ROOM 304-2 TO ROOM 309-1, ALL NEEDS ATTENDED.
[2018-11-21 04:00] VITALS: BP 120/70
[2018-11-21 07:17] LABS: BASOPHILS # (AUTO) 0.1 /CMM (0.0-0.2); BASOPHILS % (AUTO) 0.7 % (0.0-2.0); EOSINOPHILS % (AUTO) 3.3 % (0.0-6.0); HEMATOCRIT 30 % (33-45); HEMOGLOBIN 10.2 g/dL (11.5-14.8); LYMPHOCYTES # (AUTO) 1.3 /CMM (0.8-4.8); LYMPHOCYTES % (AUTO) 17.6 % (20.0-44.0); MEAN CORPUSCULAR HGB CONC 34 g/dl (31.0-36.0); MEAN CORPUSCULAR VOLUME 79 fL (82-100); MONOCYTES # (AUTO) 0.5 /CMM (0.1-1.30); MONOCYTES % (AUTO) 7.1 % (2.0-12.0); NEUTROPHILS # (AUTO) 5.1 /CMM (1.8-8.9); NEUTROPHILS % (AUTO) 71.3 % (43.0-81.0); PLATELET COUNT (AUTO) 344 /CMM (150-450); RED BLOOD CELL COUNT(AUTO) 3.81 MIL/uL (4.0-5.2); WHITE BLOOD COUNT (AUTO) 7.2 K/uL (4.3-11.0)
--- NOTE | 2018-11-21 07:20 | NUR ---
RN NOTES ALL NEEDS ATTENDED AND MET, ABLE TO REST AND SLEEP WITH LONG INTERVALS. WILL ENDORS TO AM NURSE FOR CONTINUITY OF CARE.
[2018-11-21 07:28] LABS: CALCIUM, SERUM 8.2 mg/dL (8.5-10.1); CREATININE 0.6 mg/dL (0.6-1.3)
[2018-11-21 08:00] VITALS: BP 126/72
[2018-11-21] MEDS: LEVETIRACETAM (250 MG) 250 MG TABLET PO SCH (09:03)
[2018-11-21] MEDS ORDERED: GADOVERSETAMIDE 5 MMOL/10 ML VIAL ONE (13:58)
[2018-11-21] MEDS ORDERED: GADOVERSETAMIDE 2.5 MMOL/5 ML VIAL ONE (13:58)
--- NOTE | 2018-11-21 14:40 | NUR ---
patient resting in bed and no complaints of pain.
--- NOTE | 2018-11-21 15:49 | NUR ---
mri rsults in and ralayed to thpovider. patient discharged in stable condition and no seizures noted. iv dcd intact. top dressing aaplied.
[2018-11-21 15:51] VITALS: BP 118/70
--- NOTE | 2018-11-21 16:15 | NUR ---
Patient discharge home in stable condition ambulatory/ request and accompanied by rn.. home in improved condition.
== END 2018-11-21 16:00 | disposition home or self-care (01) | DRG 100 ==
LOC: ER 15:35 → TELE 17:46 → MED 11-20 08:23
PROVIDERS: ADMIT Nurse Practitioner Acute Care; ATTEND Internal Medicine
DX: G40.909 Epilepsy, unspecified, not intractable, without status epilepticus (principal); G92 Toxic encephalopathy; E44.1 Mild protein-calorie malnutrition; E87.6 Hypokalemia; F15.90 Other stimulant use, unspecified, uncomplicated; I51.7 Cardiomegaly; D63.8 Anemia in other chronic diseases classified elsewhere; F32.9 Major depressive disorder, single episode, unspecified; Z91.14 Patient's other noncompliance with medication regimen
CPT/HCPCS: 36415; 70553-TC; 71045-TC; 80048-TC; 80061-TC; 80076-TC; 80305; 81000-TC; 83690-TC; 83735-TC; 84100-TC; 84484-TC; 84703-TC; 85025-TC; 87081-TC; 95819-TC; A9579; G0378; G0480; J1953; J2060; J2405; J7030